=== PATIENT | female | born 1990 | race African-American/Black ===

== ENCOUNTER 2018-07-06 10:36 | Emergency (ER) | payer BC ==
[~2018-07-06] VITALS: Ht 160 cm; Wt 57.6 kg
[2018-07-06 11:54] LABS: BILIRUBIN,URINE NEGATIVE (NEG); CLARITY,URINE CLEAR; COLOR,URINE YELLOW; NITRITE,URINE NEGATIVE (NEG); PH,URINE 7.5; PROTEIN,URINE NEGATIVE (NEG-TRACE); UROBILINOGEN,URINE 0.2 mg/dL (0.2 mg/dL)
[2018-07-06 12:02] LABS: BACTERIA,URINE FEW /HPF (0-FEW); RBC,URINE 0 /HPF (0-2); SQUAMOUS EPITHELIAL CELL,UR MOD /LPF
[2018-07-06] MEDS ORDERED: IBUPROFEN 600 MG TABLET. PO ONE (13:45)
--- NOTE | 2018-07-06 14:17 | PHYS DOC ---
Past Medical History Past Medical History: Anemia Past Surgical History: Other Additional Past Surgical Histo: plastic surgery L hand Alcohol Use: Occasionally Drug Use: None Adult General Chief Complaint Chief Complaint: ABDOMINAL PAIN HPI HPI 28 y/o female presents to ER for c/o LLQ pain which started yest. She denies N/V /D, dysuria, or abnormal vaginal bleeding. She reports she had regular BM today. She denies fever, abd bloating, or back pain. She reports she has had some increased vaginal discharge- yellowish color denying foul odor. She reports reg. menses last week. She reports hx of anemia. She reports she does smoke marijuana denies alcohol/cigarette use. She reports she did take advil this morning with minimal relief in sxs. Review of Systems Review of Systems Constitutional: Denies fever or chills [] Eyes: Denies change in visual acuity, redness, or eye pain [] HENT: Denies nasal congestion or sore throat [] Respiratory: Denies cough or shortness of breath [] Cardiovascular: No additional information not addressed in HPI [] GI: Denies nausea, vomiting, bloody stools or diarrhea. Reports LLQ pain : Denies dysuria or hematuria. Reports yellowish vag. discharge without odor or pelvic pain/pressure Musculoskeletal: Denies back pain or joint pain [] Integument: Denies rash or skin lesions [] Neurologic: Denies headache, focal weakness or sensory changes [] Endocrine: Denies polyuria or polydipsia [] All other systems were reviewed and found to be within normal limits, except as documented in this note. Current Medications Current Medications Current Medications Medications (Trade) Dose Ordered Sig/Arianna Start Time Stop Time Status Last Admin Dose Admin Azithromycin (Zithromax) 1,000 mg 1X ONCE 07/06/18 16:00 07/06/18 16:01 DC 07/06/18 15:55 1,000 MG Ceftriaxone Sodium (Rocephin Im) 250 mg 1X ONCE 07/06/18 16:00 07/06/18 16:01 DC 07/06/18 15:55 250 MG Ibuprofen (Motrin) 600 mg 1X ONCE 07/06/18 13:45 07/06/18 13:48 DC 07/06/18 14:04 600 MG Allergies Allergies Allergies Coded Allergies Type Severity Reaction Last Updated Verified aspirin Allergy Severe lips/eyes swell 07/06/18 Yes tramadol Allergy Intermediate "hot flashes", N/V/D 07/06/18 Yes Physical Exam Physical Exam Constitutional: Well developed, well nourished, no acute distress, non-toxic appearance. [] HENT: Normocephalic, atraumatic, oropharynx moist, no oral exudates, nose normal. [] Eyes: Pupils equal, conjunctiva normal, no discharge. [] Neck: Normal range of motion, no tenderness, supple, no stridor. [] Cardiovascular: Heart rate regular rhythm, no murmur [] Lungs & Thorax: Bilateral breath sounds clear to auscultation. Resp. equal/ nonlabored Abdomen: Bowel sounds normal, soft- no distention/rigidity, tender on palp. lt lower abd, no rebound tenderness, no masses, no pulsatile masses. [] Skin: Warm, dry, no erythema, no rash. [] Back: No tenderness, no CVA tenderness. [] Extremities: No tenderness, no cyanosis, no clubbing, ROM intact, no edema. [] Neurologic: Alert and oriented X 3, normal motor function, normal sensory function, no focal deficits noted. [] Psychologic: Affect normal, judgement normal, mood normal. [] Current Patient Data Vital Signs Lab Values Laboratory Tests Test 07/06/18 11:40 07/06/18 11:47 07/06/18 13:40 Urine Collection Type Unknown Urine Color Yellow Urine Clarity Clear Urine pH 7.5 Urine Specific [place] 1.020 Urine Protein Negative mg/dL (NEG-TRACE) Urine Glucose (UA) Negative mg/dL (NEG) Urine Ketones (Stick) Negative mg/dL (NEG) Urine Blood Negative (NEG) Urine Nitrite Negative (NEG) Urine Bilirubin Negative (NEG) Urine Urobilinogen Dipstick 0.2 mg/dL (0.2 mg/dL) Urine Leukocyte Esterase Negative (NEG) Urine RBC 0 /HPF (0-2) Urine WBC 1-4 /HPF (0-4) Urine Squamous Epithelial Cells Mod /LPF Urine Bacteria Few /HPF (0-FEW) POC Urine HCG, Qualitative Hcg negative (Negative) Chlamydia DNA Probe Negative (Negative) Neisseria gonorrhoeae DNA Probe Negative (Negative) Microbiology 07/06/18 Wet Prep - Final, Complete EKG EKG [] Radiology/Procedures Radiology/Procedures Pelvic Exam: RN Trench Digger Helper present 1350 Abdomen: Tender to palpation left lower abdomen/adnexa External Genitalia: Normal Skin-external lesions or rash and no labial abscess Speculum: Mild erythema vaginal vault with swelling- no lesions/bleeding at cervix, yellow vaginal discharge and vaginal vault no bleeding, lesions, os closed Bimanual: No adnexal masses, + CMT PROCEDURE: PELVIS W/TV Pelvic ultrasound, 07/06/2018: HISTORY: Left adnexal pain Transabdominal and transvaginal scans were obtained. The uterus measures 9.1 x 5.7 x 5.8 cm. There are 2 round heterogeneous myometrial masses in the upper portion of the uterus. The posterior mass measures 3.5 cm. The anterior mass is slightly smaller. The appearance suggests uterine fibroids. The central uterine echo complex measures 5 mm in AP dimension. The right ovary measures 3.4 x 1.7 x 2.8 cm. It contains a 2.6 cm smooth mass with low level internal echoes. This is probably a complicated cyst. No definite mural irregularity is appreciated. The left ovary measures 4.1 x 1.5 x 1.5 cm. It contains several tiny follicular cysts. There is blood flow in both ovaries. The adnexal regions are otherwise unremarkable. No free fluid is evident in the pelvis. IMPRESSION: 1. Two uterine masses compatible with fibroids. 2. Small complicated cyst in the right ovary. This is likely a functional cyst. Sonographic follow-up is suggested for confirmation. Electronically signed by: Sylvester Castillo MD (07/06/2018 3:17 PM) [facility] DICTATED and SIGNED BY: SYLVESTER CASTILLO MD DATE: 07/06/18 1511 Course & Med Decision Making Course & Med Decision Making Pertinent Labs and Imaging studies reviewed. (See chart for details) 1350: Pt reports she had never had speculum vaginal exam- she reports pain with insertion of speculum and reports she does have pain during intercourse. Discussed inflammation in vaginal vault and discharge-discussed plans for treatment for bacterial vaginosis. Patient will be given dose of ibuprofen. Patient had left adnexa tenderness without palpable mass. Will obtain pelvis ultrasound for further evaluation. Discussed UA results with no infection and UCG was negative. Education provided on importance of yearly vaginal exams. 1530: Discussed test results with patient with ovarian cysts and 2 small fibroids reported on ultrasound results. No free fluid. Discussed plans for home discharge with prescription for Flagyl for bacterial vaginal infection. Patient advised that her GC and chlamydia are pending and his results should be back in 2-3 days and that she should follow-up on them. Patient is wanting and prophylactic treatment with Rocephin and azithromycin while in the ER. Will provide patient with TRAINING AND QUALITY MANAGER referral information for follow-up purposes. Patient was given dose of ibuprofen while in the ER and at this time is in no visible distress with reports symptoms have improved. She remains nontoxic in appearance. UA was unremarkable for infection with negative UCG. Education provided on signs and symptoms to return to ER for an discharge instructions were discussed. Staff Physician Addendum: I was working in the ER during the course of this patient's visit. I was available for consultation as needed, but I was not directly involved in the care of this patient. Dragon Disclaimer Dragon Disclaimer This electronic medical record was generated, in whole or in part, using a voice recognition dictation system. Departure Departure Impression: Primary Impression: Bacterial vaginosis Additional Impression: Pelvic inflammatory disease, female Disposition: 01 HOME, SELF-CARE Condition: STABLE Referrals: NO PCP (PCP) Patient Instructions: Bacterial Vaginosis, Pelvic Inflammatory Disease Additional Instructions: Drink plenty of fluids. Tylenol and or ibuprofen as needed for pain as directed on container. Call and schedule follow-up appointment with TRAINING AND QUALITY MANAGER doctor for reevaluation and further care. Your culture results are pending and those results will be back in 2-3 days. Scripts Metronidazole (FLAGYL) 500 Mg Tablet 1 TAB PO BID, #14 TAB 0 Refills Drinking alcohol while taking this medication and for 3 days following completion of all medication Prov: ULISSES PRUETT APRN 07/06/18 Problem Qualifiers ULISSES PRUETT APRN Jul 06, 2018 14:17 CHANDAN GRAY MD Oct 09, 2018 19:40
--- NOTE | 2018-07-06 15:22 | RAD ---
Pelvic ultrasound, 07/06/2018: HISTORY: Left adnexal pain Transabdominal and transvaginal scans were obtained. The uterus measures 9.1 x 5.7 x 5.8 cm. There are 2 round heterogeneous myometrial masses in the upper portion of the uterus. The posterior mass measures 3.5 cm. The anterior mass is slightly smaller. The appearance suggests uterine fibroids. The central uterine echo complex measures 5 mm in AP dimension. The right ovary measures 3.4 x 1.7 x 2.8 cm. It contains a 2.6 cm smooth mass with low level internal echoes. This is probably a complicated cyst. No definite mural irregularity is appreciated. The left ovary measures 4.1 x 1.5 x 1.5 cm. It contains several tiny follicular cysts. There is blood flow in both ovaries. The adnexal regions are otherwise unremarkable. No free fluid is evident in the pelvis. IMPRESSION: 1. Two uterine masses compatible with fibroids. 2. Small complicated cyst in the right ovary. This is likely a functional cyst. Sonographic follow-up is suggested for confirmation. Electronically signed by: Sylvester Castillo MD (07/06/2018 3:17 PM) [facility]
[2018-07-06] MEDS ORDERED: METR500T PO (15:41)
[2018-07-06 16:00] VITALS: BP 119/64
[2018-07-06] MEDS ORDERED: cefTRIAXone IM 250 MG VIAL IM ONE (16:00)
[2018-07-06] MEDS ORDERED: AZITHROMYCIN 250 MG TABLET. PO ONE (16:00)
[2018-07-07 13:24] LABS: GC PROBE Negative (Negative)
== END 2018-07-06 16:05 | disposition home or self-care (01) ==
LOC: ER 10:36
DX: N76.0 Acute vaginitis (principal); B96.89 Other specified bacterial agents as the cause of diseases classified elsewhere; N73.9 Female pelvic inflammatory disease, unspecified; N83.291 Other ovarian cyst, right side
CPT/HCPCS: 76830; 76856; 81001; 81025; 87491; 87591; 96372; 99284; J0696; Q0111; Q0144

== ENCOUNTER 2021-09-03 21:05 | Emergency (ER) | payer SELFPAY ==
[~2021-09-03] VITALS: Ht 160 cm; Wt 57.7 kg
[~2021-09-03 21:05] MED LIST: METR500T PO
[2021-09-03] MEDS ORDERED: fentaNYL PF VIAL 100 MCG/2 ML VIAL IM ONE (21:45)
[2021-09-03] MEDS ORDERED: DIPHTH,PERTUSS(ACELL),TET TOX 0.5 ML DISP.SYRIN. VAX IM ONE (21:45)
[2021-09-03] MEDS ORDERED: LIDOCAINE 1%/EPI 1:100,000 20 ML VIAL. INJ ONE (21:45)
--- NOTE | 2021-09-03 22:19 | RAD ---
HUMERUS AP LATERAL LEFT Clinical Indication: Reason: laceration / Spl. Instructions: / History: Comparison: None. Findings: There is no acute fracture of the humerus. The shoulder and elbow joints appear grossly intact. Of th e visualized ribs, there is no acute displaced fracture. There is no radiopaque foreign body. There i s soft tissue swelling/abnormality medial to the distal humerus. IMPRESSION: No acute fracture. Electronically signed by: Lowell Brown MD (09/03/2021 10:16 PM) [facility]
[2021-09-03] MEDS ORDERED: MUPIROCIN 2 % OINTMENT 22GM TUBE. TP SCH (23:20)
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
[2021-09-03] MEDS ORDERED: HYDROcodone/APAP 5/325MG 1 TAB TABLET PO ONE (23:30)
[2021-09-03 23:33] VITALS: BP 123/68
[2021-09-04] MEDS ORDERED: CEPH500T PO (01:42)
[2021-09-04] MEDS ORDERED: HYDR-2761 PO (01:42)
== END 2021-09-04 01:55 | disposition home or self-care (01) ==
LOC: ER 21:05
DX: S41.112A Laceration without foreign body of left upper arm, initial encounter (principal); S41.111A Laceration without foreign body of right upper arm, initial encounter; Z88.6 Allergy status to analgesic agent; Y28.8XXA Contact with other sharp object, undetermined intent, initial encounter; Y93.89 Activity, other specified; Y92.89 Other specified places as the place of occurrence of the external cause; Y99.8 Other external cause status
CPT/HCPCS: 12007; 73060; 90471; 90715; 96372; 99285; J3010; J3490

== ENCOUNTER 2021-09-15 09:58 | Emergency (ER) | payer SELFPAY ==
[~2021-09-15] VITALS: Ht 160 cm; Wt 69.1 kg
[~2021-09-15 09:58] MED LIST changes: +CEPH500T PO; +HYDR-2761 PO
[2021-09-15 10:05] VITALS: BP 109/70
--- NOTE | 2021-09-15 10:33 | PHYS DOC ---
Past Medical History Past Medical History: Anemia Past Surgical History: Other Additional Past Surgical Histo: plastic surgery L hand Smoking Status: Never Smoker Alcohol Use: Occasionally Drug Use: None General Adult EDM: Chief Complaint: SUTURE/STAPLE REMOVAL HPI: HPI: Patient is a 31-year-old female that presents today for suture removal. Patient had sutures placed here on September 03, 2021, she has had no complaints of fever chills or signs and symptoms of infection. Review of Systems: Review of Systems: Constitutional: Denies fever or chills. [] Eyes: Denies change in visual acuity. [] HENT: Denies nasal congestion or sore throat. [] Respiratory: Denies cough or shortness of breath. [] Cardiovascular: Denies chest pain or edema. [] GI: Denies abdominal pain, nausea, vomiting, bloody stools or diarrhea. [] : Denies dysuria. [] Musculoskeletal: Denies back pain or joint pain. [] Integument: Suture removal denies rash. [] Neurologic: Denies headache, focal weakness or sensory changes. [] Endocrine: Denies polyuria or polydipsia. [] Lymphatic: Denies swollen glands. [] Psychiatric: Denies depression or anxiety. [] Heart Score: C/O Chest Pain: N/A Risk Factors: Risk Factors: DM, Current or recent (<one month) smoker, HTN, HLP, family history of CAD, obesity. Risk Scores: Score 0 - 3: 2.5% MACE over next 6 weeks - Discharge Home Score 4 - 6: 20.3% MACE over next 6 weeks - Admit for Clinical Observation Score 7 - 10: 72.7% MACE over next 6 weeks - Early Invasive Strategies Allergies: Allergies: Allergies Coded Allergies Type Severity Reaction Last Updated Verified aspirin Allergy Severe lips/eyes swell 07/06/18 Yes tramadol Allergy Intermediate "hot flashes", N/V/D 07/06/18 Yes Physical Exam: PE: Constitutional: Well developed, well nourished, no acute distress, non-toxic appearance. [] HENT: Normocephalic, atraumatic, bilateral external ears normal, oropharynx moist, no oral exudates, nose normal. [] Eyes: PERRLA, EOMI, conjunctiva normal, no discharge. [] Neck: Normal range of motion, no tenderness, supple, no stridor. [] Cardiovascular:Heart rate regular rhythm, no murmur [] Lungs & Thorax: Bilateral breath sounds clear to auscultation [] Abdomen: Bowel sounds normal, soft, no tenderness, no masses, no pulsatile masses. [] Skin: Well-healed lacerations to the left inner upper arm, and right forearm, no signs and symptoms of infection noted Back: No tenderness, no CVA tenderness. [] Extremities: No tenderness, no cyanosis, no clubbing, ROM intact, no edema. [] Neurologic: Alert and oriented X 3, normal motor function, normal sensory function, no focal deficits noted. [] Psychologic: Affect normal, judgement normal, mood normal. [] Current Patient Data: Vital Signs: Vital Signs Date Time Temp Pulse Resp B/P (MAP) Pulse Ox O2 Delivery O2 Flow Rate FiO2 09/15/21 10:05 98.7 80 20 109/70 (83) 100 Room Air 98.7 EKG: EKG: [] Radiology/Procedures: Radiology/Procedures: [] Course & Med Decision Making: Course & Med Decision Making Pertinent Labs and Imaging studies reviewed. (See chart for details) No signs and symptoms of infection noted with laceration sites, nurse will remove sutures, patient is informed to return to the emergency department for any signs and symptoms of infection or any other concerns she may have. Jackie Disclaimer: Jackie Disclaimer: This electronic medical record was generated, in whole or in part, using a voice recognition dictation system. Departure Departure Impression: Primary Impression: Visit for suture removal Disposition: HOME / SELF CARE / HOMELESS Condition: STABLE Referrals: NO PCP (PCP) Patient Instructions: Suture Removal PEPE HUNTLEY APRN Sep 15, 2021 10:33
== END 2021-09-15 10:56 | disposition home or self-care (01) ==
LOC: ER 09:58
DX: S41.112D Laceration without foreign body of left upper arm, subsequent encounter (principal); Z88.6 Allergy status to analgesic agent; X58.XXXD Exposure to other specified factors, subsequent encounter
CPT/HCPCS: 99281